=== PATIENT | female | born 1950 | race Caucasian/White ===

== ENCOUNTER 2023-09-05 20:35 | Emergency (ER) | payer OTHER, MEDICAID ==
[~2023-09-05] VITALS: Ht 167.6 cm; Wt 81.6 kg
[2023-09-05 20:53] VITALS: BP_SYST 140; PULSE 88; RESP 16; TEMP 97.8; O2SAT 95
[2023-09-05 21:12] LABS: BILIRUBIN,URINE NEGATIVE (NEGATIVE); BLOOD, URINE 1+ (NEGATIVE); CLARITY/URINE CLEAR (CLEAR); COLOR,URINE ORANGE (YELLOW); GLUCOSE,URINE TRACE (NEGATIVE); KETONES,URINE NEGATIVE (NEGATIVE); LEUKOCYTE ESTERASE ,URINE 1+ (NEGATIVE); PH,URINE 5.5 (5.0-8.0); PROTEIN URINE TRACE (NEGATIVE)
[2023-09-05 21:25] LABS: NITRITE, URINE NEGATIVE (NEGATIVE)
[2023-09-05 21:26] LABS: RBC,URINE NONE SEEN /HPF (0-3)
[2023-09-05 21:27] LABS: BACTERIA,URINE FEW /HPF (None Seen); MUCUS,URINE None Seen /LPF (None Seen)
[2023-09-05] MEDS ORDERED: SULF1TAB47 PO (21:39)
[2023-09-05] MEDS ORDERED: IBUP-1969 PO (21:39)
[2023-09-05] MEDS ORDERED: cefTRIAXone 1 GM VIAL IM ONE (21:45)
[2023-09-05] MEDS ORDERED: LIDOCAINE 1%, 20 ML MDV 20 ML ONE (21:50)
[2023-09-05 22:05] VITALS: BP_SYST 140; PULSE 88; RESP 16; TEMP 97.8; O2SAT 95
== END 2023-09-05 22:05 | disposition home or self-care (01) ==
LOC: SED 20:35
DX: N30.90 Cystitis, unspecified without hematuria (principal); R30.0 Dysuria; Z79.899 Other long term (current) drug therapy
CPT/HCPCS: 99283; 81001; 87086; 96372; 81000; 81015; J0696; J2001